=== PATIENT | male | born 1955 | race Caucasian/White ===

== ENCOUNTER 2017-01-27 15:45 | Emergency (ER) | payer OTHER ==
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
--- NOTE | 2017-01-27 16:36 | ED CLINICAL REPORT ---
Clinical Report - Physicians/Mid Levels [facility] [address] [place] [address] 01/27/2017 15:47 Patient: GEMINI HEIN Time Seen: 15:59; initial patient contact. Arrived- By private vehicle. Historian- patient. HISTORY OF PRESENT ILLNESS Chief Complaint: SKIN RASH. This started yesterday very itchy rash for 2 days, took 6 benadryl yesterday, and 4 tabs today, not much improvement. takes advil daily for joint pains, no other new medications, no new foods, or other... It is described as severely itchy and mildly burning. It has been generalized in location. A possible cause has been identified. He has recently taken NSAID. Was not recently exposed to poison ward or poison oak. No recent food exposure. Similar symptoms previously: None. Recent medical care: Not recently seen/assessed. REVIEW OF SYSTEMS No fever, chills, sore throat, cough or difficulty breathing. All systems otherwise negative, except as recorded above. PAST HISTORY See nurses notes. Tetanus immunization status is up-to-date. Problems: Depression [Active]. Dental Pain. Dental Caries. Medications: Advil Oral. Allergies: None. SOCIAL HISTORY Heavy tobacco smoker (cigarette)- less than 1 pack per day. No alcohol use or drug use. FAMILY HISTORY Negative. ADDITIONAL NOTES The nursing notes have been reviewed with agreement regarding the chief complaint, HPI, ROS, PMH and patient medications and allergies. PHYSICAL EXAM Vital Signs: 01/27/2017 16:45 BP: 111/68. HR: 76. RR: 16. O2 saturation: 96%. Pain level now: 09/04. 01/27/2017 16:00 BP: 129/85. HR: 99. RR: 16. O2 saturation: 97%. Temp: 97.1 F. Pain level now: 09/04. Have been reviewed. Appearance: Alert. Oriented X3. No acute distress. Eyes: Pupils equal, round and reactive to light. Conjunctivae and eyelids normal. ENT: Ears normal. Neck: Neck supple. CVS: Normal heart rate and rhythm. Heart sounds normal. Respiratory: No respiratory distress. Breath sounds normal. Abdomen: Nontender. No organomegaly. Skin: Normal skin color. Normal skin turgor. Generalized moderate, erythematous, warm, papular, excoriated skin rash present. The rash is generalized and rash present on the trunk. Rash present on the right upper extremity and left upper extremity. Rash present on the right lower extremity and left lower extremity. The rash is fine, papular and erythematous. No rash to face, rough texture like scarlatina or skin-line distribution like pityriasis rosea. There is warmth. Neuro: Oriented X 3. PROGRESS AND PROCEDURES Course of Care: Pulse oximeter and NIBP monitor placed on patient; city alderman- Lead II; monitor alarms on. Patient gowned. Head of bed elevated. Patient identifiers checked. Call light placed in reach. Bed placed in lowest position. Brakes of bed on. --16:09 Lorena Phillips R.N. 16:23 01/27/2017 Solu-Medrol (MethylPREDNISolone Sodium Succ) IM 80 mg given. Given in the left anterior lateral thigh. Allergies verified and confirmed 5 rights. --16:23 Lorena Phillips R.N. 16:23 01/27/2017 Vistaril (HydrOXYzine Pamoate) PO Capsules 25 mg given. Allergies verified, confirmed 5 rights and sedative warning given to the patient. --16:23 Lorena Phillips R.N. pt much better after hydroxyzine. Patient is stable. Physical exam findings are improved. Symptoms much better. CLINICAL IMPRESSION Generalized drug rash due to oral ibuprofen. INSTRUCTIONS Rest. No dietary restrictions. (stop advil). Warnings: SEDATIVE MEDICATION: You were given sedative medication during your visit. Do not drive or operate dangerous machinery. GENERAL WARNINGS: Return or contact your physician immediately if your condition worsens or changes unexpectedly, if not improving as expected, or if other problems arise. Your Current Medications: STOP TAKING THE FOLLOWING MEDICATIONS: Advil Oral. Prescription Medications: Vistaril 25 mg: take 1-2 orally every 8 hours as needed for itching. Dispense ten (10). No refill. Substitution is permissible. Follow-up: Follow up with your doctor Saturday if not better. Understanding of the discharge instructions verbalized by patient. (Electronically signed by Glory Manley PA-C 01/27/2017 17:12)
--- NOTE | 2017-01-27 16:36 | ED ORDER SUMMARY ---
..... Patient: GEMINI HEIN OrderSheet [facility] VisitID: [id number] [address] [place] [address] 61y, M Registration Date/Time: 01/27/2017 ORDER SHEET Weight: 68.0 kg (stated) Allergies: None GENERAL ORDERS: MEDICATION ORDERS: Solu-MEDROL IM 80 mg (NOW) (16:08 01/27/2017 Francesca PATEL) (16:23 Kaitlyn Banerjee.Josee.) Vistaril PO 25 mg (NOW) (16:13 01/27/2017 Francesca PATEL) (16:23 Kaitlyn Banerjee.Josee.) IV FLUIDS: ORDER SHEET NOTES: [Electronically signed by Lorena Phillips R.N. (16:47 01/27/2017)] [Electronically signed by Glory Manley PA-C (17:12 01/27/2017)] [Electronically locked/signed by Lorena Phillips R.N. (16:47 01/27/2017)]
--- NOTE | 2017-01-27 16:36 | ED CLINICAL REPORT ---
Clinical Report - Physicians/Mid Levels [facility] [address] [place] [address] 01/27/2017 15:47 Patient: GEMINI HEIN Time Seen: 15:59; initial patient contact. Arrived- By private vehicle. Historian- patient. HISTORY OF PRESENT ILLNESS Chief Complaint: SKIN RASH. This started yesterday very itchy rash for 2 days, took 6 benadryl yesterday, and 4 tabs today, not much improvement. takes advil daily for joint pains, no other new medications, no new foods, or other... It is described as severely itchy and mildly burning. It has been generalized in location. A possible cause has been identified. He has recently taken NSAID. Was not recently exposed to poison ward or poison oak. No recent food exposure. Similar symptoms previously: None. Recent medical care: Not recently seen/assessed. REVIEW OF SYSTEMS No fever, chills, sore throat, cough or difficulty breathing. All systems otherwise negative, except as recorded above. PAST HISTORY See nurses notes. Tetanus immunization status is up-to-date. Problems: Depression [Active]. Dental Pain. Dental Caries. Medications: Advil Oral. Allergies: None. SOCIAL HISTORY Heavy tobacco smoker (cigarette)- less than 1 pack per day. No alcohol use or drug use. FAMILY HISTORY Negative. ADDITIONAL NOTES The nursing notes have been reviewed with agreement regarding the chief complaint, HPI, ROS, PMH and patient medications and allergies. PHYSICAL EXAM Vital Signs: 01/27/2017 16:45 BP: 111/68. HR: 76. RR: 16. O2 saturation: 96%. Pain level now: 09/04. 01/27/2017 16:00 BP: 129/85. HR: 99. RR: 16. O2 saturation: 97%. Temp: 97.1 F. Pain level now: 09/04. Have been reviewed. Appearance: Alert. Oriented X3. No acute distress. Eyes: Pupils equal, round and reactive to light. Conjunctivae and eyelids normal. ENT: Ears normal. Neck: Neck supple. CVS: Normal heart rate and rhythm. Heart sounds normal. Respiratory: No respiratory distress. Breath sounds normal. Abdomen: Nontender. No organomegaly. Skin: Normal skin color. Normal skin turgor. Generalized moderate, erythematous, warm, papular, excoriated skin rash present. The rash is generalized and rash present on the trunk. Rash present on the right upper extremity and left upper extremity. Rash present on the right lower extremity and left lower extremity. The rash is fine, papular and erythematous. No rash to face, rough texture like scarlatina or skin-line distribution like pityriasis rosea. There is warmth. Neuro: Oriented X 3. PROGRESS AND PROCEDURES Course of Care: Pulse oximeter and NIBP monitor placed on patient; cardiac nurse specialist- Lead II; monitor alarms on. Patient gowned. Head of bed elevated. Patient identifiers checked. Call light placed in reach. Bed placed in lowest position. Brakes of bed on. --16:09 Lorena Phillips R.N. 16:23 01/27/2017 Solu-Medrol (MethylPREDNISolone Sodium Succ) IM 80 mg given. Given in the left anterior lateral thigh. Allergies verified and confirmed 5 rights. --16:23 Lorena Phillips R.N. 16:23 01/27/2017 Vistaril (HydrOXYzine Pamoate) PO Capsules 25 mg given. Allergies verified, confirmed 5 rights and sedative warning given to the patient. --16:23 Lorena Phillips R.N. pt much better after hydroxyzine. Patient is stable. Physical exam findings are improved. Symptoms much better. CLINICAL IMPRESSION Generalized drug rash due to oral ibuprofen. INSTRUCTIONS Rest. No dietary restrictions. (stop advil). Warnings: SEDATIVE MEDICATION: You were given sedative medication during your visit. Do not drive or operate dangerous machinery. GENERAL WARNINGS: Return or contact your physician immediately if your condition worsens or changes unexpectedly, if not improving as expected, or if other problems arise. Your Current Medications: STOP TAKING THE FOLLOWING MEDICATIONS: Advil Oral. Prescription Medications: Vistaril 25 mg: take 1-2 orally every 8 hours as needed for itching. Dispense ten (10). No refill. Substitution is permissible. Follow-up: Follow up with your doctor Saturday if not better. Understanding of the discharge instructions verbalized by patient. (Electronically signed by Glory Manley PA-C 01/27/2017 17:12)
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
--- NOTE | 2017-01-27 16:36 | ED ORDER SUMMARY ---
..... Patient: GEMINI HEIN OrderSheet [facility] VisitID: [id number] [address] [place] [address] 61y, M Registration Date/Time: 01/27/2017 ORDER SHEET Weight: 68.0 kg (stated) Allergies: None GENERAL ORDERS: MEDICATION ORDERS: Solu-MEDROL IM 80 mg (NOW) (16:08 01/27/2017 Francesca PATEL) (16:23 Kaitlyn Banerjee.Josee.) Vistaril PO 25 mg (NOW) (16:13 01/27/2017 Francesca PATEL) (16:23 Kaitlyn Banerjee.Josee.) IV FLUIDS: ORDER SHEET NOTES: [Electronically signed by Lorena Phillips R.N. (16:47 01/27/2017)] [Electronically signed by Glory Manley PA-C (17:12 01/27/2017)] [Electronically locked/signed by Lorena Phillips R.N. (16:47 01/27/2017)]
--- NOTE | 2017-01-27 17:13 | ED DISCHARGE INSTRUCTIONS ---
Patient: GEMINI HEIN General Instructions [facility] VisitID: [id number] [place] [address] 61y, M Registration Date/Time: 01/27/2017 Generalized drug rash due to oral ibuprofen. INSTRUCTIONS Rest. No dietary restrictions. (stop advil). Warnings: SEDATIVE MEDICATION: You were given sedative medication during your visit. Do not drive or operate dangerous machinery. GENERAL WARNINGS: Return or contact your physician immediately if your condition worsens or changes unexpectedly, if not improving as expected, or if other problems arise. Your Current Medications: STOP TAKING THE FOLLOWING MEDICATIONS: Advil Oral. Prescription Medications: Vistaril 25 mg: take 1-2 orally every 8 hours as needed for itching. Dispense ten (10). No refill. Substitution is permissible. Follow-up: Follow up with your doctor Saturday if not better. Understanding of the discharge instructions verbalized by patient. ADDITIONAL INFORMATION Drug Reaction: Allergic You are having an allergic reaction to a drug you have taken. This causes an itchy rash and sometimes swelling of various parts of the body. It may also cause trouble swallowing or breathing. The rash may take a few hours or up to two weeks to go away. In the future, remember to tell your doctor about your allergy to this drug so that drugs of this type won't be used again. Home Care: 1) Throw the drug away and do not take it again. The next reaction may be much worse. 2) Avoid tight clothing and anything that heats up your skin (hot showers/baths, direct sunlight) since heat will make itching worse. 3) An ice pack (ice cubes in a plastic bag, wrapped in a towel) will relieve local areas of intense itching and redness. Lanacaine cream or Solarcaine spray (or other product containing "benzocaine") will reduce the itching. 4) Avoid scratching which may worsen the reaction, damage your skin and lead to an infection. 5) Oral Benadryl (diphenhydramine) is an antihistamine available at drug and grocery stores. Unless a prescription antihistamine was given, Benadryl may be used to reduce itching if large areas of the skin are involved. Use lower doses during the daytime and higher doses at bedtime since the drug may make you sleepy. [NOTE: Do not use Benadryl if you have glaucoma or if you are a man with trouble urinating due to an enlarged prostate.] Claritin (loratadine) is an antihistamine that causes less drowsiness and is a good alternative for daytime use. Follow Up with your doctor or this facility in the next two days if your symptoms do not continue to improve. Get Prompt Medical Attention if any of the following occur: -- Wheezing, shortness of breath or difficulty swallowing -- Increased swelling in the face, eyelids, mouth, lips, tongue or throat -- Dizziness, weakness or fainting You have been given the following additional information: Allergic Reaction, Drug Rest. (Electronically signed by Glory Manley PA-C 01/27/2017 17:12)
--- NOTE | 2017-01-27 17:13 | ED MAR SUMMARY ---
..... Medication Administration Record [facility] [address] [place] [address] Patient: GEMINI HEIN Visit ID: [id number] 61y, M Weight: 68.0 kg Height/Length: 69 in BMI: 22.2 ALLERGIES: None Given 16:01/27/2017 Lorena Phillips RRicardo Medication Administered: SOLU-MEDROL [IM] (METHYLPREDNISOLONE SODIUM SUCC), Dose: 80 mg IM. Medication Ordered: Solu-MEDROL IM 80 mg (NOW). Given 16:01/27/2017 Lorena Phillips, RFilipeNFilipe Medication Administered: VISTARIL [PO] (HYDROXYZINE PAMOATE), Dose: 25 mg Capsules PO. Medication Ordered: Vistaril PO 25 mg (NOW).
--- NOTE | 2017-01-27 17:13 | ED MAR SUMMARY ---
..... Medication Administration Record [facility] [address] [place] [address] Patient: GEMINI HEIN Visit ID: [id number] 61y, M Weight: 68.0 kg Height/Length: 69 in BMI: 22.2 ALLERGIES: None Given 16:01/27/2017 Lorena Phillips RRicardo Medication Administered: SOLU-MEDROL [IM] (METHYLPREDNISOLONE SODIUM SUCC), Dose: 80 mg IM. Medication Ordered: Solu-MEDROL IM 80 mg (NOW). Given 16:01/27/2017 Lorena Phillips, RFilipeNFilipe Medication Administered: VISTARIL [PO] (HYDROXYZINE PAMOATE), Dose: 25 mg Capsules PO. Medication Ordered: Vistaril PO 25 mg (NOW).
--- NOTE | 2017-01-27 17:13 | ED MED RECONCILIATION SUMMARY ---
Patient: GEMINI HEIN Medication Reconciliation Report [facility] VisitID: [id number] [address] [place] [address] 61y, M Registration Date/Time: 01/27/2017 Weight: 68.0 kg Height/Length: 69 in. BMI: 22.2 ALLERGIES: None The patient's Home Medications are listed below: STOP TAKING THE FOLLOWING MEDICATIONS: Advil Oral The source(s) of the original Home Medication information: patient The following Medications were given to the patient in the Emergency Department: Solu-Medrol [IM] IM 80 mg, administered: 01/27/2017 4:23:00 PM Vistaril [PO] PO 25 mg, administered: 01/27/2017 4:23:00 PM The following Medications were prescribed to the patient: Vistaril 25 mg: take 1-2 orally every 8 hours as needed for itching. Dispense ten (10). No refill. Substitution is permissible. -- Glory Manley PA-C
--- NOTE | 2017-01-27 17:13 | ED MED RECONCILIATION SUMMARY ---
Patient: GEMINI HEIN Medication Reconciliation Report [facility] VisitID: [id number] [address] [place] [address] 61y, M Registration Date/Time: 01/27/2017 Weight: 68.0 kg Height/Length: 69 in. BMI: 22.2 ALLERGIES: None The patient's Home Medications are listed below: STOP TAKING THE FOLLOWING MEDICATIONS: Advil Oral The source(s) of the original Home Medication information: patient The following Medications were given to the patient in the Emergency Department: Solu-Medrol [IM] IM 80 mg, administered: 01/27/2017 4:23:00 PM Vistaril [PO] PO 25 mg, administered: 01/27/2017 4:23:00 PM The following Medications were prescribed to the patient: Vistaril 25 mg: take 1-2 orally every 8 hours as needed for itching. Dispense ten (10). No refill. Substitution is permissible. -- Glory Manley PA-C
== END 2017-01-27 16:45 | disposition home or self-care (01) ==
LOC: ED SRH 15:45
DX: L27.0 Generalized skin eruption due to drugs and medicaments taken internally (principal); T39.315A Adverse effect of propionic acid derivatives, initial encounter; F17.210 Nicotine dependence, cigarettes, uncomplicated